=== PATIENT | female | born 1990 | race Caucasian/White ===

== ENCOUNTER 2021-12-21 11:06 | Emergency (ER) | payer OTHER, SELFPAY ==
[2021-12-21 11:15] VITALS: BP 118/69; PULSE 84; RESP 16; TEMP 36.7; O2SAT 99
[2021-12-21 11:31] VITALS: BP 118/69; PULSE 84; RESP 16; TEMP 36.7; O2SAT 99
--- NOTE | 2021-12-21 11:34 | ED.EAR ---
HPI - Ear Problem General Chief complaint: Ear Stated complaint: ear infection Time Seen by Provider: 12/21/21 11:34 Source: patient Mode of arrival: ambulatory Limitations: no limitations History of Present Illness HPI Narrative: 31-year-old female presents with right ear pain for 1 day. Has had recent nasal congestion. Denies fever chills. No change in hearing. History of ear infections as a child. All systems reviewed and negative except as noted above. Related Data Home Medications Medication Instructions Recorded Confirmed 12/21/21 Allergies Allergy/AdvReac Type Severity Reaction Status Date / Time No Known Allergies Allergy Verified 12/21/21 11:14 Review of Systems Review of Systems: CONSTITUTIONAL: Denies fever, chills, or sweats. EYES: Denies visual changes, redness, or discharge. ENT: Denies rhinorrhea, congestion, sore throat. Reports right ear pain. CARDIOVASCULAR: Denies chest pain, palpitations, or edema. RESPIRATORY: Denies cough or dyspnea. GASTROINTESTINAL: Denies abdominal pain, nausea, vomiting, or diarrhea. GENITOURINARY: Denies dysuria or hematuria. SKIN: Denies rash or itching. MUSCULOSKELETAL: Denies back pain, joint pain, or myalgia. NEUROLOGIC: Denies headache, numbness, or weakness. PSYCHIATRIC: Denies anxiety or depression. All other systems reviewed are negative, except as documented in HPI. PMFSH Social History Social History Smoking status: Never smoker Alcohol intake: current Comments At time of signature, agree with nursing past medical, surgical, social and family history. There is no relevant family history pertinent to the presenting complaint. Exam Narrative: GENERAL: This is a well-nourished, well-developed patient, in no apparent distress. HEAD: normocephalic, atraumatic. EYES: PERRL. Sclera clear/white. Vision is grossly intact. EARS: External ears normal, auditory canals clear and without drainage. Right TM erythematous, retracted. Left TM normal. NECK: Neck supple, non-tender without lymphadenopathy, masses or thyromegaly. CARDIOVASCULAR: Regular rate and rhythm without murmurs, gallops, or rubs. RESPIRATORY: Clear to auscultation. Breath sounds equal bilaterally. No wheezes, rales, or rhonchi. SKIN: warm, Dry, intact with no suspicious lesions or rash, good texture and turgor. NEURO: awake, alert, and oriented to person, place and time. There were no obvious focal neurologic abnormalities. EXTREMITIES: Normal range of motion to all extremities. Course Course Level of Care: Express Care Visit Vital Signs Vital signs: Vital Signs Temperature 36.7 C 12/21/21 11:15 Pulse Rate 84 12/21/21 11:15 Respiratory Rate 16 12/21/21 11:15 Blood Pressure 118/69 12/21/21 11:15 Pulse Oximetry 99 12/21/21 11:15 Oxygen Delivery Room Air 12/21/21 11:15 Temperature 36.7 C 12/21/21 11:31 Pulse Rate 84 12/21/21 11:31 Respiratory Rate 16 12/21/21 11:31 Blood Pressure 118/69 12/21/21 11:31 Pulse Oximetry 99 12/21/21 11:31 Oxygen Delivery Room Air 12/21/21 11:31 Reviewed Medical Decision Making MDM Narrative Medical decision making narrative: Patient is aware of diagnosis, understands and agrees to treatment plan. Anticipatory guidance given. Patient agrees to follow-up as directed and is aware of reasons to seek care at the emergency department. Portions of this record may have been created with voice recognition software Vital Signs Vital Signs: Vital Signs Temperature 36.7 C 12/21/21 11:15 Pulse Rate 84 12/21/21 11:15 Respiratory Rate 16 12/21/21 11:15 Blood Pressure 118/69 12/21/21 11:15 Pulse Oximetry 99 12/21/21 11:15 Oxygen Delivery Room Air 12/21/21 11:15 Temperature 36.7 C 12/21/21 11:31 Pulse Rate 84 12/21/21 11:31 Respiratory Rate 16 12/21/21 11:31 Blood Pressure 118/69 12/21/21 11:31 Pulse Oximetry 99 12/21/21 11:31 Oxygen Delivery Room Air
== END 2021-12-21 11:42 | disposition home or self-care (01) ==
PROVIDERS: Emergency Provider Nurse Practitioner Family; PCP Family Medicine
DX: H66.91 Otitis media, unspecified, right ear (principal); Z86.16 Personal history of COVID-19
CPT/HCPCS: 99203; G0463